=== PATIENT | female | born 1995 | race Caucasian/White ===

== ENCOUNTER 2017-03-13 10:31 | Emergency (ER) | payer OTHER ==
[2017-03-13] MEDS ORDERED: TYLENOL 325 MG PO STA (11:13)
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
[2017-03-13] MEDS ORDERED: TYLENOL 325 MG ONE (12:06)
[2017-03-13 13:09] VITALS: PULSE 62
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
[2017-03-13 13:33] VITALS: BP 118/84; O2SAT 100
== END 2017-03-13 13:31 | disposition home or self-care (01) ==
LOC: ED 10:31
DX: S43.401A Unspecified sprain of right shoulder joint, initial encounter (principal); S79.911A Unspecified injury of right hip, initial encounter; S49.81XA Other specified injuries of right shoulder and upper arm, initial encounter; M25.551 Pain in right hip; M25.511 Pain in right shoulder; V89.2XXA Person injured in unspecified motor-vehicle accident, traffic, initial encounter; M43.6 Torticollis
CPT/HCPCS: 71020; 72125; 73000; 73030; 73502; 99284; A9270-GY

== ENCOUNTER 2023-01-30 06:33 | Day surgery (SDC) | payer OTHER ==
[2023-01-30 06:59] LABS: HCG URINE TEST NEGATIVE (NEGATIVE)
[2023-01-30] MEDS ORDERED: Lactated Ringers 1,000 ML IV SCH (07:00)
[2023-01-30] MEDS ORDERED: Reglan 10 MG/2 ML IV ONE (07:29)
[2023-01-30] MEDS ORDERED: Pepcid 20 MG VIAL IV ONE (07:29)
[2023-01-30] MEDS ORDERED: DIPRIVAN 200 MG/20 ML IV ONE (08:08)
[2023-01-30] MEDS ORDERED: Versed 2 MG/2 ML Injection ONE (08:08)
[2023-01-30] MEDS ORDERED: Xylocaine-Mpf 2% 5 Ml Vial ONE (08:08)
[2023-01-30 09:29] VITALS: O2SAT 99
[2023-01-30 09:35] VITALS: BP 158/98; PULSE 66
--- NOTE | 2023-01-30 10:32 | OP ---
SURGERY DATE/TIME: 01/30/2023 0812 PREOPERATIVE DIAGNOSIS: Abdominal pain and diarrhea. POSTOPERATIVE DIAGNOSES: 1) Mild gastritis. 2) Small rectosigmoid polyps. PROCEDURES: 1) Esophagogastroduodenoscopy with cold forceps biopsy to rule out Helicobacter pylori. 2) Colonoscopy with cold forceps biopsy to rule out inflammatory bowel disease. SURGEON: Dr. Fofana. ANESTHESIA: Medications were given by the anesthesia department. HISTORY: The patient is a 27-year-old white female who presents now for complaints of abdominal pain and diarrhea. The patient has previously had in the last several weeks exploratory laparoscopy and appendectomy. The patient described her problems as having loose stools after each meal. She reports mucous but no blood in the stool. The patient was felt the need to have endoscopic evaluation. She was appraised of the risks of the procedure including the risk of perforation, phlebitis, untoward reaction to medication, bleeding and missed lesions, sore throat or vocal cord injury. The patient verbalized her understanding and desired to have the procedure performed. DESCRIPTION OF PROCEDURE: The patient was given the medications by the anesthesia department. She had continuous pulse oximetry, ECG monitoring and intermittent blood pressure monitoring during the examination. She was placed in the left lateral decubitus position. A bite block was placed. The flexible Olympus gastroscope was used to intubate the oropharynx. A view of the larynx was obtained and was normal. The scope was easily introduced in the esophagus which appeared to be essentially normal throughout its length. The stomach was entered where normal gastric rugal folds were seen and these distended nicely with insufflation of air. The scope was passed along the greater curvature of the stomach to the antrum. The pylorus encountered and intubated. The duodenum inspected and found to be normal. The scope is withdrawn from the stomach. Again, retroflex view was obtained of the lesser curvature, fundus and cardia regions of the stomach and these appeared to be essentially normal. The scope was then redirected towards the gastric antrum and biopsies were obtained to rule out the presence of Helicobacter pylori-type organism. The scope was then removed from the patient. Next, a digital rectal examination was performed and revealed normal anal sphincter tone and no masses. The flexible Olympus pediatric colonoscope was used to intubate the rectum. A view of the colon was developed sequentially to the cecum including a short distance in the terminal ileum. Biopsies were obtained from the ileum and throughout the colon in random segments. There was a small polyp seen in the rectosigmoid area and this was destroyed using multiple passes of the cold forceps biopsy. The scope was removed from the patient who tolerated the procedure well and was sent to OP recovery in good condition. The prep was noted to be good.
== END 2023-01-30 09:40 | disposition home or self-care (01) ==
LOC: SDC 06:33
PROVIDERS: ATTEND Family Medicine
DX: K29.70 Gastritis, unspecified, without bleeding (principal); R10.9 Unspecified abdominal pain; R19.7 Diarrhea, unspecified; D12.7 Benign neoplasm of rectosigmoid junction
CPT/HCPCS: 81025; J2250; J2704

== ENCOUNTER 2024-01-10 17:14 | Emergency (ER) | payer OTHER ==
[2024-01-10 17:30] VITALS: TEMP 97.7
[2024-01-10] MEDS ORDERED: NORCO 5/325 MG ONE (17:33)
--- NOTE | 2024-01-10 17:33 | ERPHSYRPT ---
- History of Present Illness Time Seen by Provider: 01/10/24 17:23 Source: patient Exam Limitations: no limitations Physician History: Since working out 2 days ago pt has had pain in the right side of her neck and has had tingling in her right hand; denies chest pain, shortness of air, abdominal pain, nausea, vomiting, headache. Allergies/Adverse Reactions: dicyclomine HCl [From Bentyl] Allergy (Mild, Verified 01/10/24 17:24) Hives Penicillins Allergy (Mild, Verified 01/10/24 17:24) Hives Home Medications: Montelukast Sodium 10 mg [Singulair 10 MG] 10 mg PO DAILY 10/06/13 [History] Famotidine 40 mg PO DAILY 07/06/14 [History] ALPRAZolam 0.25 MG [xanAX 0.25 MG] 0.25 mg PO DAILY 01/27/23 [History] Omeprazole 20 mg PO DAILY 01/10/24 [History] Hx Tetanus, Diphtheria Vaccination/Date Given: Yes (up to date) Hx Influenza Vaccination/Date Given: Yes Hx Pneumococcal Vaccination/Date Given: No - Review of Systems Constitutional: No Fever Ears, Nose, & Throat: No Ear Pain, No Throat Pain Respiratory: No Dyspnea Cardiac: No Chest Pain Abdominal/Gastrointestinal: No Abdominal Pain, No Nausea, No Vomiting Musculoskeletal: Neck Pain Neurological: No Headache - Past Medical History Pertinent Past Medical History: Yes Neurological History: No Pertinent History ENT History: No Pertinent History Cardiac History: Hypertension Respiratory History: Asthma Endocrine Medical History: No Pertinent History Musculoskeletal History: No Pertinent History GI Medical History: GERD History: No Pertinent History Psycho-Social History: Depression Female Reproductive Disorders: Menstrual Problems Other Medical History: allergies - Past Surgical History Past Surgical History: Yes Neuro Surgical History: No Pertinent History Cardiac: No Pertinent History Respiratory: No Pertinent History Gastrointestinal: Appendectomy, Exploratory Laparoscopy Genitourinary: No Pertinent History Musculoskeletal: No Pertinent History Female Surgical History: No Pertinent History Other Surgical History: TONSILECTOMY/ADNOIDECTOMY Significant Family History: no pertinent family hx - Social History Smoking Status: Never smoker Exposure to second hand smoke: Yes Alcohol Use: None Drug Use: none Patient Lives Alone: No - Nursing Vital Signs Nursing Vital Signs: Initial Vital Signs Temperature 97.7 F 01/10/24 17:19 Pulse Rate 89 05/15/24 17:19 Blood Pressure 160/107 01/10/24 17:19 O2 Sat by Pulse Oximetry 100 01/10/24 17:19 Pain Scale Pain Intensity 4 - Physical Exam General Appearance: alert Eye Exam: PERRL/EOMI Ears, Nose, Throat Exam: TMs normal, pharynx normal Neck Exam: other (tenderness over right lateral neck), No midline tenderness Respiratory Exam: lungs clear Cardiovascular Exam: normal heart sounds Gastrointestinal/Abdomen Exam: normal bowel sounds Back Exam: No vertebral tenderness Extremity Exam: normal range of motion Neurologic Exam: alert, cooperative, sensation nml, No motor deficits Skin Exam: warm, dry - CT Exams Soft Tissue Neck CT Interpretation: Tele-radiologist Report (normal) Ordered Tests: Active Orders 24 hr Category Date Time Status Cervical Collar Application STAT Care 01/10/24 19:08 Active NECK WO CONTRAST [CT] Stat Exams 01/10/24 17:36 Taken HCG QUALITATIVE, URINE Stat Lab 01/10/24 17:45 Completed Medication Summary Discontinued Medications Generic Name Dose Route Start Last Admin Trade Name Stephon PRN Reason Stop Dose Admin Hydrocodone Bitart/Acetaminophen 2 tab 01/10/24 17:30 01/10/24 17:34 Hydrocodone/Apap 5/325 1 Tab Tablet PO 01/10/24 17:31 2 tab STAT ONE Administration Hydrocodone Bitart/Acetaminophen Confirm 01/10/24 17:33 Hydrocodone/Apap 5/325 1 Tab Tablet Administered 01/10/24 17:34 Dose 2 tab .ROUTE .STK-MED ONE Cyclobenzaprine HCl 10 mg 01/10/24 19:07 Cyclobenzaprine Hcl 10 Mg Tablet PO 01/10/24 19:08 STAT ONE Lab/Rad Data: Laboratory Results 01/10/24 Range/Units 17:45 Urine HCG, Qual NEGATIVE (NEGATIVE) - Progress Progress: improved Counseled pt/family regarding: diagnosis, need for follow-up, rad results Medical Desision Making - Diagnostic Testing Diagnostic test were ordered, analyzed, and reviewed by me: Yes Radiological Interpretation: Discussed w/ radiologist - Departure Departure Disposition: Home Clinical Impression: Neck strain Condition: Stable Critical Care Time: No Referrals: YAZAN POND MD [Primary Care Provider] - Follow up/PCP as directed Instructions: Cervical Muscle Strain (DC) Additional Instructions: Follow up with private doctor tomorrow. Wear soft C-collar for the next 2 weeks only while awake. Forms: Work/School Release Form Prescriptions: Cyclobenzaprine HCl 10 mg [Cyclobenzaprine 10 MG] 10 mg PO Q8H PRN PRN #21 tablet PRN Reason: Muscle Spasms Ketorolac Trometh 10 mg Tab [TORAdol 10 MG TABLET] 10 mg PO Q8H PRN PRN #14 tablet PRN Reason: Pain
[2024-01-10] MEDS: NORCO 5/325 MG PO ONE (17:34)
[2024-01-10 17:50] LABS: HCG URINE TEST NEGATIVE (NEGATIVE)
[2024-01-10 18:35] VITALS: RESP 16
[2024-01-10] MEDS ORDERED: Cyclobenzaprine 10 MG ONE (19:09)
[2024-01-10] MEDS: Cyclobenzaprine 10 MG PO ONE (19:10)
[2024-01-10 19:12] VITALS: BP 139/71; PULSE 80; O2SAT 98
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
== END 2024-01-10 19:18 | disposition home or self-care (01) ==
LOC: ED 17:14
DX: S16.1XXA Strain of muscle, fascia and tendon at neck level, initial encounter (principal); R20.2 Paresthesia of skin; I10 Essential (primary) hypertension; Z79.899 Other long term (current) drug therapy
CPT/HCPCS: 70490; 81025; 99283; L0120; A9270-GY

== ENCOUNTER 2024-02-09 19:35 | Emergency (ER) | payer OTHER ==
[2024-02-09 20:36] VITALS: BP 144/70; RESP 20; O2SAT 99
[2024-02-09] MEDS ORDERED: Zithromax 250 MG TABLET ONE (21:35)
--- NOTE | 2024-02-09 21:35 | ERPHSYRPT ---
- History of Present Illness Time Seen by Provider: 02/09/24 19:42 Source: patient Exam Limitations: no limitations Patient Subjective Stated Complaint: Pt Dx with strep throat on 02/07/24. received Rx for keflex bid. Pt c/o strep throat symtoms worsening. Blisters in throat and tounge and difficulty swallowing. Pt now also c/o having some dizzines with sharp shooting "zapping" interminetnt pain over the top of her. Pt also states she feels like it is hard to breath with her throat paIN Triage Nursing Assessment: pt with sore throat, slightly reddened some blisering noted in back of throat, pt states pain is worse lower down in her throat. Neck sore with palpation. Afebrile, taking keflex at home she recieved a couple of days ago at [facility] Physician History: 28-year-old female presented in the ER with worsening sore throat. Patient was diagnosed with strep 2 days ago, on Keflex 500 twice a day which does not seem helping much. Patient reports increased difficulty swallowing with worsening pain in the throat and noticed some blisters in the throat and tongue. No fever or chills reported. No difficulty movements of neck. Does report having pain in the throat and on top of her head. No cough or difficulty breathing. She has been taking Tylenol as needed for symptomatic relief. Allergies/Adverse Reactions: dicyclomine HCl [From Bentyl] Allergy (Mild, Verified 01/10/24 17:24) Hives Penicillins Allergy (Mild, Verified 01/10/24 17:24) Hives sulfamethoxazole [From Bactrim] Adverse Reaction (Severe, Verified 02/09/24 20:53) trimethoprim [From Bactrim] Adverse Reaction (Severe, Verified 02/09/24 20:53) Home Medications: Montelukast Sodium 10 mg [Singulair 10 MG] 10 mg PO DAILY 10/06/13 [History] Famotidine 40 mg PO DAILY 07/06/14 [History] ALPRAZolam 0.25 MG [xanAX 0.25 MG] 0.25 mg PO DAILY 01/27/23 [History] Omeprazole 20 mg PO DAILY PRN PRN 01/10/24 [History] Cephalexin Mh 500 mg [Keflex 500 mg] 500 mg PO BID 02/09/24 [History] Hx Tetanus, Diphtheria Vaccination/Date Given: Yes (up to date) Hx Influenza Vaccination/Date Given: Yes Hx Pneumococcal Vaccination/Date Given: No Travel Risk - International Travel Have you traveled outside of the country in past 3 weeks: No - Emerging Infectious Disease Are you exhibiting symptoms associated with any current EIDs: No Comment: pt has been taking niquil vapor - Review of Systems Constitutional: No Symptoms Eyes: No Symptoms Ears, Nose, & Throat: Throat Pain, Throat Swelling Respiratory: No Symptoms Cardiac: No Symptoms Abdominal/Gastrointestinal: No Symptoms Genitourinary Symptoms: No Symptoms Musculoskeletal: No Symptoms Skin: No Symptoms Neurological: Headache Psychological: No Symptoms Endocrine: No Symptoms Hematologic/Lymphatic: No Symptoms Immunological/Allergic: No Symptoms - Past Medical History Pertinent Past Medical History: Yes Neurological History: No Pertinent History ENT History: No Pertinent History Cardiac History: Hypertension Respiratory History: Asthma Endocrine Medical History: No Pertinent History Musculoskeletal History: No Pertinent History GI Medical History: GERD History: No Pertinent History Psycho-Social History: Depression Female Reproductive Disorders: Menstrual Problems Other Medical History: allergies - Past Surgical History Past Surgical History: Yes Neuro Surgical History: No Pertinent History Cardiac: No Pertinent History Respiratory: No Pertinent History Gastrointestinal: Appendectomy, Exploratory Laparoscopy Genitourinary: No Pertinent History Musculoskeletal: No Pertinent History Female Surgical History: No Pertinent History Other Surgical History: TONSILECTOMY/ADNOIDECTOMY Significant Family History: no pertinent family hx - Female History Hx Now: No - Social History Smoking Status: Never smoker Exposure to second hand smoke: No Alcohol Use: None Drug Use: none Patient Lives Alone: No - Social Determinants of Health Do you worry about a steady place to live?: No Do you have any problems with any of the following?: No known problems In the past 12 months,have you had to go without utilities?: No Transportation Issues: No Has anyone in your support network made you feel unsafe?: No Have you or anyone in your house had to go without enough: No - Nursing Vital Signs Nursing Vital Signs: Initial Vital Signs Temperature 97.2 F 02/09/24 19:35 Pulse Rate 83 02/09/24 19:35 Respiratory Rate 20 02/09/24 19:35 Blood Pressure 144/70 02/09/24 19:35 O2 Sat by Pulse Oximetry 99 02/09/24 19:35 Pain Scale Pain Intensity 7 - Physical Exam General Appearance: no apparent distress, alert Eye Exam: bilateral eye: normal inspection, PERRL, EOMI Ear Exam: bilateral ear: auricle normal, canal normal, TM normal Nasal Exam: normal inspection, No sinus tenderness Throat Exam: moist mucus membranes, pharynx swelling, pharynx tenderness, tonsillar exudate, uvula swelling Neck Exam: normal inspection, non-tender, supple, full range of motion, lymphadenopathy (R), lymphadenopathy (L) Cardiovascular/Respiratory Exam: normal breath sounds, regular rate/rhythm Abdominal Exam: non-tender, soft Neurologic Exam: alert, oriented x 3, portfolio assistant II-XII nml as tested Skin Exam: normal color SpO2 Interpretation: normal SpO2: 99 O2 Delivery: Room Air Ordered Tests: Medication Summary Discontinued Medications Generic Name Dose Route Start Last Admin Trade Name Freq PRN Reason Stop Dose Admin Azithromycin 500 mg 02/09/24 21:21 Azithromycin 250 Mg Tablet PO 02/09/24 21:22 STAT ONE Dexamethasone 10 mg 02/09/24 21:21 Dexamethasone 4 Mg Tablet PO 02/09/24 21:22 ONCE STA - Progress Progress: unchanged Progress Note: 02/09/24 21:32 28-year-old with positive strep couple days ago and negative flu COVID RSV is evaluated in the ER for worsening sore throat despite taking Keflex. Patient does have some swelling of her uvula, given a dose of Decadron. She is afebrile, no tachypnea or tachycardia, does not seem patient has peritonsillar abscess. Patient does have some swelling of lymph nodes. Patient has no signs of meningismus. I do not think patient needs any imaging or workup, I will switch it to Zithromax and recommended continue with Tylenol along with ibuprofen for symptomatic relief. Discussed signs symptoms of worsening needing return to ER which she seems understanding. Stable for discharge. Counseled pt/family regarding: diagnosis, need for follow-up Medical Desision Making - Diagnostic Testing Diagnostic test were ordered, analyzed, and reviewed by me: No - Risk of complications The pt has a mod risk of morbidity or mortality based on: Need for prescription drug management - Departure Departure Disposition: Home Clinical Impression: Strep pharyngitis Condition: Stable Critical Care Time: No Referrals: YAZAN POND MD [Primary Care Provider] - Follow up with PCP 2 days Instructions: Strep Throat (DC) Additional Instructions: Rotate Tylenol/ibuprofen alternate for pain control and fever chills. Take soft diet. Follow-up with primary care for reevaluation. Return to ER for difficulty swallowing/breathing/persistent high-grade fever chills etc. Prescriptions: Azithromycin 250 mg [Zithromax 250 MG TABLET] 250 mg PO DAILY 4 Days #4 tablet
[2024-02-09] MEDS: Zithromax 250 MG TABLET PO ONE (21:37)
[2024-02-09] MEDS: Decadron 4 MG PO STA (21:43)
[2024-02-09] MEDS ORDERED: Protonix 40MG Tablet ONE (21:47)
[2024-02-09] MEDS: Protonix 40MG Tablet PO ONE (21:48)
[2024-02-09 21:51] VITALS: PULSE 73; TEMP 97.7
== END 2024-02-09 22:31 | disposition home or self-care (01) ==
LOC: ED 19:35
DX: J02.0 Streptococcal pharyngitis (principal); R13.10 Dysphagia, unspecified; I10 Essential (primary) hypertension; Z79.899 Other long term (current) drug therapy
CPT/HCPCS: 99282; A9270-GY

== ENCOUNTER 2024-02-11 00:05 | Emergency (ER) | payer OTHER ==
[2024-02-11 00:29] VITALS: RESP 20; TEMP 98.5; O2SAT 100
--- NOTE | 2024-02-11 01:17 | ERPHSYRPT ---
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 She felt a little dizzy but did not completely passed out. She has neck pain. Patient has a history gastroesophageal reflux disease, anxiety issues, asthma. She was recently diagnosed with strep pharyngitis and placed on Keflex. She did not feel that this medication was working for her and was seen in our emergency department on 02/09/2020 for the medication was changed to a Z-Uli. Initially upon entering the emergency department, we placed a cervical collar on the patient. Occurred: just prior to arrival Reason for Fall: slipped (After missing a step) Injuries/Pain Location: head, neck Loss of Consciousness: no loss of consciousness Quality: aching Severity of Pain-Max: mild (Moderate) Severity of Pain-Current: mild (Moderate) Modifying Factors: Improves With: movement Associated Symptoms (Fall): headache, muscle spasms, neck pain Allergies/Adverse Reactions: dicyclomine HCl [From Bentyl] Allergy (Mild, Verified 02/11/24 00:12) Hives Penicillins Allergy (Mild, Verified 02/11/24 00:12) Hives sulfamethoxazole [From Bactrim] Adverse Reaction (Severe, Verified 02/11/24 00:12) trimethoprim [From Bactrim] Adverse Reaction (Severe, Verified 02/11/24 00:12) Home Medications: Montelukast Sodium 10 mg [Singulair 10 MG] 10 mg PO DAILY 10/06/13 [History] Famotidine 40 mg PO DAILY 07/06/14 [History] ALPRAZolam 0.25 MG [xanAX 0.25 MG] 0.25 mg PO DAILY 01/27/23 [History] Omeprazole 20 mg PO DAILY PRN PRN 01/10/24 [History] Hx Tetanus, Diphtheria Vaccination/Date Given: Yes (up to date) Hx Influenza Vaccination/Date Given: Yes Hx Pneumococcal Vaccination/Date Given: No Travel Risk - International Travel Have you traveled outside of the country in past 3 weeks: No - Emerging Infectious Disease Are you exhibiting symptoms associated with any current EIDs: No Comment: pt has been taking niquil vapor - Review of Systems Constitutional: No Symptoms Eyes: No Symptoms Ears, Nose, & Throat: No Symptoms Respiratory: No Symptoms Cardiac: No Symptoms Abdominal/Gastrointestinal: No Symptoms Genitourinary Symptoms: No Symptoms Musculoskeletal: Neck Pain, Fall Skin: No Symptoms Neurological: Headache Psychological: No Symptoms Endocrine: No Symptoms Hematologic/Lymphatic: No Symptoms Immunological/Allergic: No Symptoms All Other Systems: Reviewed and Negative - Past Medical History Pertinent Past Medical History: Yes Neurological History: No Pertinent History ENT History: No Pertinent History Cardiac History: Hypertension Respiratory History: Asthma Endocrine Medical History: No Pertinent History Musculoskeletal History: No Pertinent History GI Medical History: GERD History: No Pertinent History Psycho-Social History: Depression Female Reproductive Disorders: Menstrual Problems Other Medical History: allergies - Past Surgical History Past Surgical History: Yes Neuro Surgical History: No Pertinent History Cardiac: No Pertinent History Respiratory: No Pertinent History Gastrointestinal: Appendectomy, Exploratory Laparoscopy Genitourinary: No Pertinent History Musculoskeletal: No Pertinent History Female Surgical History: No Pertinent History Other Surgical History: TONSILECTOMY/ADNOIDECTOMY Significant Family History: no pertinent family hx - Female History Hx Now: No - Social History Smoking Status: Never smoker Exposure to second hand smoke: No Alcohol Use: None Drug Use: none Patient Lives Alone: No - Social Determinants of Health Will the patient participate in the screening: Yes Do you worry about a steady place to live?: No Do you have any problems with any of the following?: No known problems In the past 12 months,have you had to go without utilities?: No Transportation Issues: No Has anyone in your support network made you feel unsafe?: No Have you or anyone in your house had to go without enough: No - Nursing Vital Signs Nursing Vital Signs: Initial Vital Signs Temperature 98.5 F 02/11/24 00:15 Pulse Rate 92 H 02/11/24 00:15 Respiratory Rate 20 02/11/24 00:15 Blood Pressure 181/108 02/11/24 00:15 O2 Sat by Pulse Oximetry 100 02/11/24 00:15 Pain Scale Pain Intensity 4 - Willem Coma Score Best Eye Response (Willem): (4) open spontaneously Best Verbal Response ([place]): (5) oriented Best Motor Response (Willem): (6) obeys commands Willem Total: 15 - Physical Exam General Appearance: no apparent distress, alert, anxiety Head Injury: no evidence of injury Eye Exam: PERRL/EOMI, eyes nml inspection ENT Exam: airway nml, nml ext.inspection, No evidence of ENT injury Neck Exam: trachea midline, normal alignment, c-collar in place Respiratory/Chest Exam: No chest tenderness, No respiratory distress, No ecchymosis, No crepitus Gastrointestinal Exam: No tenderness Rectal Exam: not done Back Exam: normal inspection, normal range of motion, No CVA tenderness, No vertebral tenderness Extremity Exam: normal inspection, normal range of motion, pelvis stable Neurologic Exam: alert, oriented x 3, cooperative, physical therapist center manager II-XII nml as tested, nml cerebellar function, nml station & gait, sensation nml Skin Exam: normal color, warm, dry SpO2 Interpretation: normal SpO2: 100 O2 Delivery: Room Air - Course Nursing assessment & vital signs reviewed: Yes Ordered Tests: Active Orders 24 hr Category Date Time Status CERVICAL SPINE WO CONTRAST [CT] Stat Exams 02/11/24 00:27 Completed HEAD WITHOUT CONTRAST [CT] Stat Exams 02/11/24 00:27 Completed Medication Summary Discontinued Medications Generic Name Dose Route Start Last Admin Trade Name Stephon PRN Reason Stop Dose Admin Acetaminophen 650 mg 02/11/24 01:51 02/11/24 01:53 Acetaminophen 325 Mg Tablet PO 02/11/24 01:52 650 mg STAT STA Administration Acetaminophen Confirm 02/11/24 01:52 Acetaminophen 325 Mg Tablet Administered 02/11/24 01:53 Dose 650 mg .ROUTE .STK-MED ONE Ibuprofen 400 mg 02/11/24 01:51 02/11/24 01:53 Ibuprofen 400 Mg Tablet PO 02/11/24 01:52 400 mg STAT ONE Administration Ibuprofen Confirm 02/11/24 01:52 Ibuprofen 400 Mg Tablet Administered 02/11/24 01:53 Dose 400 mg .ROUTE .STK-MED ONE - Progress Progress: pain not gone completely, re-examined Progress Note: 02/11/24 01:17 My medical decision making and the assignment of low to moderate complexity to this patient's medical issues based on review of the patient's past medical history, review of the patient's medication list, review of patient drug allergy list, history present illness and physical findings on examination. This p atient workup includes CT scan of the head and CT scan of the cervical spine without contrast. Differential diagnosis includes contusion, muscle spasms, skull fracture, cervical spine subluxation/fracture, acute intracranial abnormality 02/11/24 02:46 The radiologist interpreted as the CT scan of the head and CT scan of the cervical spine without contrast. The results are as follows: CT scan of the head without contrast is unremarkable. CT scan of the cervical spine shows no acute fracture or subluxation. Counseled pt/family regarding: diagnosis, need for follow-up, rad results Medical Desision Making - Independent Historian Additional History obtained from: Spouse - Diagnostic Testing Diagnostic test were ordered, analyzed, and reviewed by me: Yes Radiological Interpretation: Reviewed by me, Teleradiologist Report - Risk of complications Low Risk: Low risk of morbidity from additional dx testing or treatment - Departure Departure Disposition: Home Clinical Impression: Fall with no significant injury Condition: Stable Critical Care Time: No Referrals: YAZAN POND MD [Primary Care Provider] - Follow up/PCP as directed Additional Instructions: Ice pack 3 times a day for the next 72 hours to areas of tenderness. Use Tylenol and ibuprofen for pain control if there are no contraindications to do so. Call your primary care provider tomorrow, 02/12/2024 to make arranges for follow-up appointment to be seen in the next 3 to 5 days
[2024-02-11] MEDS ORDERED: TYLENOL 325 MG ONE (01:52)
[2024-02-11] MEDS ORDERED: MOTRIN 400 MG ONE (01:52)
[2024-02-11] MEDS: TYLENOL 325 MG PO STA (01:53)
[2024-02-11] MEDS: MOTRIN 400 MG PO ONE (01:53)
--- NOTE | 2024-02-11 02:20 | XRAY ---
CLINICAL HISTORY: Fall COMPARISON: None. TECHNIQUE: Axial noncontrast CT scan of the brain was performed from the skull base to the high parietal region. One of the following dose reduction techniques was utilized for this exam: Automated exposure control, adjustment of the mA and/or kV according to patient size, and use of iterative reconstruction. FINDINGS: The visualized brain parenchyma shows a normal appearance. No focal parenchymal abnormalities are demonstrated. Batista-white matter differentiation is maintained. No midline shifts or deformity. No intracerebral or extra axial hematoma. Normal size and configuration of the cerebral ventricles. Normal CT appearance of the posterior fossa structures namely the cerebellar hemispheres, brainstem, and cerebellar peduncles. No definite calvarium fractures. Scanned paranasal sinuses are clear. IMPRESSION: Unremarkable unenhanced CT study for the brain. Electronically Signed by: Ishan Carolina MD. (02/11/2024 02:15:29 EDT)
--- NOTE | 2024-02-11 02:41 | XRAY ---
CLINICAL HISTORY: Fall COMPARISON: None. TECHNIQUE: Thin axial CT of the cervical spine was performed with sagittal and coronal reconstructions without contrast. One of the following dose reduction techniques was utilized for this exam: Automated exposure control, adjustment of the mA and/or kV according to patient size, and use of iterative reconstruction. FINDINGS: Straightened cervical curvature suggesting muscle spasm. The vertebral bodies are normal in height. No lytic or sclerotic bone lesion. The craniovertebral measures are unremarkable. No acute vertebral fracture or structural collapse. Intervertebral disc spaces: No significant disc lesion detected. IMPRESSION: 1. Straightened cervical curvature suggesting muscle spasm. 2. No acute vertebral fracture or structural collapse. Electronically Signed by: Ishan Carolina MD. (02/11/2024 02:38:22 EDT)
[2024-02-11 03:02] VITALS: BP 144/87; PULSE 87
== END 2024-02-11 03:08 | disposition home or self-care (01) ==
LOC: ED 00:05
DX: Z04.3 Encounter for examination and observation following other accident (principal); M54.2 Cervicalgia; I10 Essential (primary) hypertension; Z79.899 Other long term (current) drug therapy
CPT/HCPCS: 70450; 72125; 93005; 99284; A9270-GY

== ENCOUNTER 2024-08-26 15:53 | Emergency (ER) | payer OTHER ==
--- NOTE | 2024-08-26 16:42 | ERPHSYRPT ---
- History of Present Illness Time Seen by Provider: 08/26/24 16:42 Source: patient, family Exam Limitations: no limitations Physician History: This is a 29-year-old white female patient of Dr. Pond and senior validation engineer Dr. Holt. Patient began having vaginal bleeding on Monday prior to this evaluation. Today, approximately 1 PM. In the last few days she has had significantly lower quantitative hCG levels. It is assumed the patient has had a miscarriage. The patient had another increase in her vaginal bleeding and associated significant bilateral lower back/flank pain. Patient feels nauseated but has not vomited. She has no chest pain. She has no shortness of breath. Timing/Duration: today Activites at Onset: none Quality: cramping (Suprapubic and bilateral flank) Onset Location: suprapubic, generalized flank Pain Radiation: none Severity of Pain-Max: mild Severity of Pain-Current: moderate Sexual intercourse history: non-contributory Modifying Factors: Improves With: nothing Associated Symptoms: abdominal pain (Pubic cramping), lower back pain Allergies/Adverse Reactions: dicyclomine HCl [From Bentyl] Allergy (Mild, Verified 08/26/24 16:36) Hives Penicillins Allergy (Mild, Verified 08/26/24 16:36) Hives sulfamethoxazole [From Bactrim] Adverse Reaction (Severe, Verified 08/26/24 16:36) trimethoprim [From Bactrim] Adverse Reaction (Severe, Verified 08/26/24 16:36) Home Medications: Montelukast Sodium 10 mg [Singulair 10 MG] 10 mg PO DAILY 10/06/13 [History] Famotidine 40 mg PO DAILY 07/06/14 [History] Omeprazole 20 mg PO DAILY PRN PRN 01/10/24 [History] Hx Tetanus, Diphtheria Vaccination/Date Given: Yes (up to date) Hx Influenza Vaccination/Date Given: Yes Hx Pneumococcal Vaccination/Date Given: No Travel Risk - International Travel Have you traveled outside of the country in past 3 weeks: No - Emerging Infectious Disease Are you exhibiting symptoms associated with any current EIDs: No Comment: pt has been taking niquil vapor - Review of Systems Constitutional: No Symptoms Eyes: No Symptoms Ears, Nose, & Throat: No Symptoms Respiratory: No Symptoms Cardiac: No Symptoms Abdominal/Gastrointestinal: Abdominal Pain (Pubic) Genitourinary Symptoms: Vaginal Bleeding Musculoskeletal: No Symptoms Skin: No Symptoms Neurological: No Symptoms Psychological: No Symptoms Endocrine: No Symptoms Hematologic/Lymphatic: No Symptoms Immunological/Allergic: No Symptoms All Other Systems: Reviewed and Negative - Past Medical History Pertinent Past Medical History: Yes Neurological History: No Pertinent History ENT History: No Pertinent History Cardiac History: Hypertension Respiratory History: Asthma Endocrine Medical History: No Pertinent History Musculoskeletal History: No Pertinent History GI Medical History: GERD History: No Pertinent History Psycho-Social History: Depression Female Reproductive Disorders: Menstrual Problems Other Medical History: allergies - Past Surgical History Past Surgical History: Yes Neuro Surgical History: No Pertinent History Cardiac: No Pertinent History Respiratory: No Pertinent History Gastrointestinal: Appendectomy, Exploratory Laparoscopy Genitourinary: No Pertinent History Musculoskeletal: No Pertinent History Female Surgical History: No Pertinent History Other Surgical History: TONSILECTOMY/ADNOIDECTOMY Significant Family History: no pertinent family hx - Female History Hx Last Menstrual Period: JUN 0504/2014 - Social History Smoking Status: Never smoker Exposure to second hand smoke: No Alcohol Use: None Drug Use: none Patient Lives Alone: No - Social Determinants of Health Will the patient participate in the screening: Yes Do you worry about a steady place to live?: No In the past 12 months,have you had to go without utilities?: No Transportation Issues: No Has anyone in your support network made you feel unsafe?: No Have you or anyone in your house had to go without enough: No - Nursing Vital Signs Nursing Vital Signs: Initial Vital Signs Temperature 97.8 F 08/26/24 16:35 Pulse Rate 75 08/26/24 16:35 Respiratory Rate 16 08/26/24 16:35 Blood Pressure 145/101 08/26/24 16:35 O2 Sat by Pulse Oximetry 100 08/26/24 16:35 Pain Scale Pain Intensity 4 - Physical Exam General Appearance: no apparent distress, alert, anxiety Eye Exam: PERRL/EOMI, eyes nml inspection Ears, Nose, Throat Exam: normal ENT inspection, moist mucous membranes Neck Exam: normal inspection, non-tender, supple, full range of motion Respiratory Exam: normal breath sounds, lungs clear, airway intact, No chest tenderness, No respiratory distress Cardiovascular Exam: regular rate/rhythm, normal heart sounds, normal peripheral pulses Gastrointestinal/Abdomen Exam: soft, normal bowel sounds, tenderness (Mild suprapubic area with palpation), No guarding, No rebound Pelvic Exam: not done Rectal Exam: not done Back Exam: normal inspection, normal range of motion, No CVA tenderness, No vertebral tenderness Extremity Exam: normal inspection, normal range of motion, pelvis stable Neurologic Exam: alert, oriented x 3, cooperative, cage clerk II-XII nml as tested, nml cerebellar function, nml station & gait, sensation nml Skin Exam: normal color, warm, dry Lymphatic Exam: No adenopathy SpO2 Interpretation: normal O2 Delivery: Room Air - Course Nursing assessment & vital signs reviewed: Yes Ordered Tests: Active Orders 24 hr Category Date Time Status IV Insertion STAT Care 08/26/24 17:21 Active OB LIMITED [US] Stat Exams 08/26/24 18:17 Ordered AMYLASE Stat Lab 08/26/24 17:54 Completed CBC W DIFF Stat Lab 08/26/24 17:54 Completed CMP Stat Lab 08/26/24 17:54 Completed LIPASE Stat Lab 08/26/24 17:54 Completed UA W/RFX UR CULTURE Stat Lab 08/26/24 17:41 Completed Medication Summary Discontinued Medications Generic Name Dose Route Start Last Admin Trade Name Freq PRN Reason Stop Dose Admin Sodium Chloride 1,000 mls @ 999 mls/hr 08/26/24 17:21 08/26/24 18:55 Sodium Chloride 0.9% 1000 Ml IV 08/26/24 18:21 Infused .Q1H1M STA Infusion Sodium Chloride Confirm 08/26/24 17:53 Sodium Chloride 0.9% 1000 Ml Administered 08/26/24 17:54 Dose 1,000 mls @ ud .ROUTE .K-MED ONE Lab/Rad Data: Laboratory Result Diagrams 08/26/24 17:54 08/26/24 17:54 Laboratory Results 08/26/24 08/26/24 08/26/24 Range/Units 17:54 17:54 17:41 WBC 9.3 (3.98-10.04) x10^3/uL RBC 4.43 (3.93-5.22) x10^6/uL Hgb 12.6 (11.2-15.7) g/dL Hct 38.2 (34.1-44.9) % MCV 86.2 (79.4-94.8) fL MCH 28.4 (25.6-32.2) pg MCHC 33.0 (32.2-35.5) g/dL RDW 11.5 L (11.7-14.4) % Plt Count 277 (182-369) x10^3/uL MPV 10.0 (9.4-12.3) fL Gran % 66.9 (34.0-71.1) % Immature Gran % (Auto) 0.3 (0.001-0.429) % Nucleat RBC Rel Count 0.0 (0.00-0.2) % Eos # (Auto) 0.13 (0.04-0.36) x10^3/uL Immature Gran # (Auto) 0.03 (0.001-0.031) x10^3u/L Absolute Lymphs (auto) 2.14 (1.18-3.74) x10^3/uL Absolute Monos (auto) 0.74 (0.24-0.86) x10^3/uL Absolute Nucleated RBC 0.00 (0.00-0.012) x10^3u/L Lymphocytes % 23.1 (19.3-51.7) % Monocytes % 8.0 (4.7-12.5) % Eosinophils % 1.4 (0.7-5.8) % Basophils % 0.3 (0.1-1.2) % Absolute Granulocytes 6.21 H (1.56-6.13) x10^3/uL Basophils # 0.03 (0.01-0.08) x10^3/uL Sodium 141 (135-145) mmol/L Potassium 3.6 (3.5-5.1) mmol/L Chloride 108 H (98-107) mmol/L Carbon Dioxide 23 (22-30) mmol/L Anion Gap 13.5 (5-15) MEQ/L BUN 11 (7-17) mg/dL Creatinine 0.90 (0.52-1.04) mg/dL Estimated GFR 89.3 ML/MIN Glucose 87 (74-106) mg/dL Calcium 9.1 (8.4-10.2) mg/dL Total Bilirubin 0.30 (0.2-1.3) mg/dL AST 26 (14-36) U/L ALT 19 (0-35) U/L Alkaline Phosphatase 63 (38-126) U/L Serum Total Protein 7.9 (6.3-8.2) g/dL Albumin 4.7 (3.5-5.0) g/dL Amylase 71 (30-110) U/L Lipase 300 (23-300) U/L Urine Color Yellow (Yellow) Urine Appearance Clear (Clear) Urine pH 6.5 (4.6-8.0) Ur Specific [place] 1.025 (1.005-1.030) Urine Protein Negative (Negative) Urine Glucose (UA) Negative (Negative) mg/dL Urine Ketones Trace A (Negative) Urine Blood Large A (Negative) Urine Nitrite Negative (Negative) Urine Bilirubin Negative (Negative) Urine Urobilinogen 0.2 (0.2) mg/dL Ur Leukocyte Esterase Negative (Negative) U Hyaline Cast (Auto) NONE SEEN (0-2) /LPF Urine Microscopic RBC 11-20 A (0-5) /HPF Urine Microscopic WBC 3-5 (0-5) /HPF Ur Epithelial Cells Few (None Seen) /HPF Urine Bacteria Rare A (None Seen) /HPF Urine Culture Reflexed NO (NO) - Progress Progress: improved, re-examined Air Movement: good Progress Note: 08/26/24 18:23 My medical decision making and the assignment of moderate complexity to this patient's medical issue today is based on review of the patient's past medical history, review of the patient's medication list, reviewed patient drug allergy list, history present illness and physical findings on examination. The workup in this patient includes CBC, CMP, urinalysis, OB ultrasound less than 14 weeks. Differential diagnosis includes but is not limited to miscarriage, urinary tract infection 08/26/24 19:56 I interpreted the patient's laboratory data results. Based on the laboratory data results there is hematuria as expected post spontaneous miscarriage. No urinary tract infection. The batcher operator/technologist provided me with the preliminary report of no intrauterine fetus. Blood Culture(s) Obtained: No Antibiotics given: No Counseled pt/family regarding: lab results, diagnosis, need for follow-up, rad results Medical Desision Making - Independent Historian Additional History obtained from: Mother - Diagnostic Testing Diagnostic test were ordered, analyzed, and reviewed by me: Yes Radiological Interpretation: Reviewed by me, Teleradiologist Report - Risk of complications The pt has a mod risk of morbidity or mortality based on: Need for prescription drug management - Departure Departure Disposition: Home Clinical Impression: Vaginal bleeding, Back pain Condition: Stable Critical Care Time: No Referrals: YAZAN POND MD [Primary Care Provider] - Follow up/PCP as directed Additional Instructions: Drink plenty of fluids. Take your medication as prescribed. Call your prescribing provider tomorrow, 08/27/2024, to make arranges for follow-up appointment to be seen in the next 3 to 5 days. Prescriptions: Hydrocodone/APAP 5/325 [[place] 5/325 mg] 1 each PO Q8H PRN PRN #6 tablet MDD 3 PRN Reason: Pain
[2024-08-26 16:55] VITALS: TEMP 97.8
[2024-08-26 17:47] LABS: Appearance Clear (Clear); Bacteria Rare /HPF (None Seen); Bilirubin Negative (Negative); Blood Large (Negative); Epithelial Cells Few /HPF (None Seen); Glucose, Urine Negative (Negative); Hyaline Casts NONE SEEN /LPF (0-2); Ketones Trace (Negative); Leukocyte Esterase Negative (Negative); Nitrite Negative (Negative); Ph 6.5 (4.6-8.0); Protein,Urine Dip Negative (Negative); Specific Gravity 1.025 (1.005-1.030); Urobilinogen 0.2 mg/dL (0.2)
[2024-08-26] MEDS: Sodium Chloride 0.9% 1000 ML 1,000 ML IV STA (17:53)
[2024-08-26] MEDS ORDERED: Sodium Chloride 0.9% 1000 ML 1,000 ML ONE (17:53)
[2024-08-26 17:55] LABS: Absolute Neutrophil Ct (ANC) 6.21 x10^3/uL (1.56-6.13); BASOPHIL % 0.3 % (0.1-1.2); Basophil (Absolute #) 0.03 x10^3/uL (0.01-0.08); Eosinophil % 1.4 % (0.7-5.8); Eosinophil (Absolute #) 0.13 x10^3/uL (0.04-0.36); Hematocrit 38.2 % (34.1-44.9); Hemoglobin 12.6 g/dL (11.2-15.7); IMMATURE GRAN # 0.03 x10^3u/L (0.001-0.031); IMMATURE GRAN % 0.3 % (0.001-0.429); Lymphocyte (Absolute #) 2.14 x10^3/uL (1.18-3.74); Lymphocytes % 23.1 % (19.3-51.7); Mean Cell Volume 86.2 fL (79.4-94.8); Mean Corpuscular Hemoglobin 28.4 pg (25.6-32.2); Monocyte (Absolute #) 0.74 x10^3/uL (0.24-0.86); Neutrophil % 66.9 % (34.0-71.1); Platelet Count 277 x10^3/uL (182-369); Red Blood Count 4.43 x10^6/uL (3.93-5.22); Red Cell Distribution Width 11.5 % (11.7-14.4); White Blood Count 9.3 x10^3/uL (3.98-10.04)
[2024-08-26 18:04] VITALS: RESP 17
[2024-08-26 18:11] LABS: ALBUMIN 4.7 g/dL (3.5-5.0); ANION GAP 13.5 MEQ/L (5-15); BILIRUBIN,TOTAL 0.3 mg/dL (0.2-1.3); Calcium 9.1 mg/dL (8.4-10.2); Creatinine 1 0.9 mg/dL (0.52-1.04); EST GLOMERULAR FILTRATION RATE 89.3 ML/MIN; Potassium 3.6 mmol/L (3.5-5.1); Total Protein 7.9 g/dL (6.3-8.2)
[2024-08-26 20:10] VITALS: PULSE 78; O2SAT 99
[2024-08-26] MEDS ORDERED: NORCO 5/325 MG ONE (20:10)
[2024-08-26] MEDS: NORCO 5/325 MG PO ONE (20:11)
[2024-08-26 20:15] VITALS: BP 147/99
--- NOTE | 2024-08-27 09:03 | XRAY ---
Indication: Vaginal bleeding and pain. Two-dimensional transabdominal and transvaginal early OB ultrasound performed. Comparison: None Uterus anteverted measuring 7.1 x 3.0 x 4.3 cm. No focal solid/cystic uterine mass. Endometrial stripe measures 1.7 mm without intrauterine gestational sac, pole, endometrial cavity mass, or fluid collection. Left and right ovaries are sonographically unremarkable. No suspicious adnexal mass or free fluid. Impression: Negative for intrauterine/ectopic . Comment: Preliminary report was given.
== END 2024-08-26 20:25 | disposition home or self-care (01) ==
LOC: ED 15:53
DX: N93.9 Abnormal uterine and vaginal bleeding, unspecified (principal); M54.50 Low back pain, unspecified; R10.9 Unspecified abdominal pain; R11.0 Nausea; I10 Essential (primary) hypertension; Z79.891 Long term (current) use of opiate analgesic; Z79.899 Other long term (current) drug therapy
CPT/HCPCS: 36415; 76815; 80053; 81001; 82150; 83690; 85025; 96360; 99284; 99285; A9270-GY